=== PATIENT | male | born 1965 | race Caucasian/White ===

== ENCOUNTER 2022-04-30 13:16 | Emergency (ER) | payer SELFPAY ==
[~2022-04-30] VITALS: Ht 170.2 cm; Wt 74.8 kg
[2022-04-30 13:30] VITALS: BP 108/61
--- NOTE | 2022-04-30 13:35 | NUR ---
BM AT ER LARGE AMOUNT AT THIS TIME. PAIN 0/10 AT THIS TIME.
--- NOTE | 2022-04-30 14:35 | NUR ---
LAB ATTEMPTED TO DRAW, PT NOT FOUND IN LOBBY/OUTSIDE
--- NOTE | 2022-04-30 14:52 | NUR ---
CALLED X 1 . NO SHOW.
--- NOTE | 2022-04-30 15:30 | NUR ---
LAB ATTEMPTED TO DRAW, PT NOT FOUND IN LOBBY/OUTSIDE
--- NOTE | 2022-04-30 16:28 | NUR ---
LAB ATTEMPTED TO DRAW, PT NOT FOUND. DR GARCIA AWARE. PATIENT LEFT WITHOUT BEING SEEN BY DR. GARCIA. NO FURTHER CARE PROVIDED FOR PATIENT.
== END 2022-04-30 14:35 | disposition left against medical advice (07) ==
LOC: MED 13:16
DX: K56.609 Unspecified intestinal obstruction, unspecified as to partial versus complete obstruction (principal); Z53.21 Procedure and treatment not carried out due to patient leaving prior to being seen by health care provider